=== PATIENT | female | born 1990 | race Caucasian/White ===

== ENCOUNTER 2024-03-13 16:15 | Inpatient (IN) | payer OTHER ==
[2024-03-13 17:10] VITALS: BMI 26.6
[2024-03-13] MEDS ORDERED: FENTANYL/BUPIVACAINE/NS/PF - PCEA - 50 ML DISP.SYRIN EP ONE ×2 (17:14→21:36)
[2024-03-13] MEDS: FENTANYL/BUPIVACAINE/NS/PF - PCEA - 50 ML DISP.SYRIN EP SCH (17:29)
[2024-03-13] MEDS ORDERED: NALOXONE HCL 0.4 MG/ML VIAL IVPUSH PRN (17:30)
[2024-03-13 18:21] LABS: BASO % 0.3 % (0-2.0); EOS % 0.3 % (0-4.5); HEMOGLOBIN 12.3 GM/dL (10.7-15.3); LYMPH % 12.6 % (8-40); MCH 32.8 pg (25.7-33.7); MCHC 34.2 g/dl (32.0-36.0); MEAN CELL VOLUME 95.8 fl (80-96); MEAN PLT VOLUME 9.4 fl (7.5-11.1); MONO % 5.5 % (3.8-10.2); NEUT % 81.3 % (42.8-82.8); PLATELET COUNT 181 10^3/uL (134-434); RBC 3.76 M/mm3 (3.60-5.2); RDW 13.3 % (11.6-15.6); WHITE BLOOD COUNT 14.8 K/mm3 (4.0-10.0)
[2024-03-13 18:28] LABS: INR 0.87 (0.83-1.09)
[2024-03-13 18:31] LABS: ACTIVATED PTT 25.8 SECONDS (25.2-36.5)
[2024-03-13 18:37] LABS: POTASSIUM 3.1 mmol/L (3.5-5.1)
[2024-03-13 18:38] LABS: CALCIUM 8.5 mg/dL (8.5-10.1)
[2024-03-13 18:39] LABS: BLOOD UREA NITROGEN 10.1 mg/dL (7-18)
[2024-03-13 18:42] LABS: CREATININE 0.7 mg/dL (0.55-1.3)
[2024-03-13] MEDS: ELECTROLYTE-148 SOLN 1,000 ML IV SCH (19:00)
[2024-03-13 19:33] LABS: HIV INTERPRETATION NEGATIVE (NEGATIVE)
[2024-03-13] MEDS ORDERED: LIDOCAINE HCL 1% PRESERVATIVE FREE - 30ML VIAL ONE (21:33)
[2024-03-13] MEDS ORDERED: OXYTOCIN 20 UNITS in 0.9% NS 20 UNIT/1,000 ML INFUS.BAG IV ONE (21:33)
[2024-03-13] MEDS: OXYTOCIN 20 UNITS in 0.9% NS 20 UNIT/1,000 ML INFUS.BAG IV SCH (21:57)
[2024-03-13] MEDS ORDERED: ACETAMINOPHEN 325 MG TABLET (FP) PO PRN (22:06)
[2024-03-13] MEDS ORDERED: oxyCODONE HCL 5 MG TABLET PO PRN (22:06)
[2024-03-13] MEDS ORDERED: METHYLERGONOVINE MALEATE 0.2 MG/1 ML AMP IM PRN (22:06)
[2024-03-13] MEDS ORDERED: BISACODYL 10 MG SUPP.RECT RC PRN (22:06)
[2024-03-14] MEDS: WITCH HAZEL 50% (TUCKS) 40 PAD/JAR PAD TP PRN (02:00)
[2024-03-14] MEDS: BENZOCAINE 20% 57 GM BOTTLE TP PRN (02:02)
[2024-03-14] MEDS: BENZOCAINE 28 GM HEMORRHOIDAL OINTMENT TP PRN (02:04)
[2024-03-14 07:42] LABS: BASO % 0.2 % (0-2.0); EOS % 0.3 % (0-4.5); HEMATOCRIT 33.3 % (32.4-45.2); HEMOGLOBIN 11.2 GM/dL (10.7-15.3); LYMPH % 17.8 % (8-40); MCHC 33.7 g/dl (32.0-36.0); MEAN CELL VOLUME 97.9 fl (80-96); MEAN PLT VOLUME 9.3 fl (7.5-11.1); MONO % 7.3 % (3.8-10.2); NEUT % 74.4 % (42.8-82.8); PLATELET COUNT 151 10^3/uL (134-434); RDW 13.3 % (11.6-15.6); WHITE BLOOD COUNT 16.8 K/mm3 (4.0-10.0)
[2024-03-14] MEDS: PRENATAL VITAMINS W/ FOLIC ACID TABLET (FP) PO SCH (09:21)
[2024-03-14] MEDS: IBUPROFEN 600 MG TABLET (FP) PO PRN (09:21)
[2024-03-14] MEDS ORDERED: SENNOSIDES/DOCUSATE COMBO (SENNA PLUS) TABLET (UD) PO PRN (22:00)
[2024-03-15 11:19] VITALS: BP 104/65; PULSE 76; RESP 16; TEMP 98.2
== END 2024-03-15 12:35 | disposition home or self-care (01) | DRG 807 ==
LOC: JDEL 16:15 → JLDR 16:25 → J3W 03-14 00:33
PROVIDERS: ADMIT Obstetrics & Gynecology; ATTEND Obstetrics & Gynecology
PROC: 10E0XZZ Delivery of Products of Conception, External Approach (ICD-10-PCS; principal; 2024-03-13)
PROC: 0HQ9XZZ Repair Perineum Skin, External Approach (ICD-10-PCS; 2024-03-13)
DX: O70.0 First degree perineal laceration during delivery (principal); Z37.0 Single live birth; Z3A.39 39 weeks gestation of pregnancy
CPT/HCPCS: 36415; 59025; 59409; 80048; 85025; 85610; 85730; 86780; 86850; 86900; 86901; 87389; G0463-25